=== PATIENT | female | born 1995 | race Caucasian/White ===

== ENCOUNTER → 2020-04-10 | Outpatient (CLI) | payer BC, SELFPAY ==
[2020-04-10 17:04] LABS: Chlamydia Trachomatis by PCR Negative (Negative); Neisserai gonorrhoeae by PCR Negative (Negative); Probe Check PASS; Sample Adequacy Control PASS; Specimen Processing Control PASS
== END | disposition home or self-care (01) ==
LOC: LABSPEC 15:02
PROVIDERS: Referring Provider Family Medicine; Visit Provider Family Medicine
DX: N39.0 Urinary tract infection, site not specified (principal)
CPT/HCPCS: 87077; 87086; 87088; 87186; 87491; 87591

== ENCOUNTER → 2020-07-04 14:16 | Outpatient (CLI) | payer BC, SELFPAY | PROVIDERS: PCP Family Medicine; Referring Provider Family Medicine; Visit Provider Family Medicine | DX: N39.0 Urinary tract infection, site not specified (principal) | CPT/HCPCS: 87077; 87086; 87088; 87186 ==

== ENCOUNTER → 2021-04-09 11:37 | Outpatient (CLI) | payer BC, SELFPAY ==
[2021-04-15 13:42] LABS: HPV APTIMA, High Risk Negative (Negative)
== END ==
PROVIDERS: PCP Family Medicine; Visit Provider Obstetrics & Gynecology
DX: Z12.4 Encounter for screening for malignant neoplasm of cervix (principal)
CPT/HCPCS: 87624; 88175; G0145

== ENCOUNTER → 2021-04-30 09:01 | Outpatient (CLI) | payer BC, SELFPAY ==
[2021-04-30 09:56] LABS: Absolute Lymphocyte Count 1.89 X10^3/uL (0.83-4.51); Absolute Neutrophil Count 1.9 X10^3/uL (2.0-7.7); Basophil# 0.04 X10^3/uL; Basophil% 0.9 % (0-1); Eosinophil# 0.23 X10^3/uL; Eosinophils% 5.1 % (0-5); Hematocrit 43.1 % (37-47); Hemoglobin 14.2 g/dL (12.0-15.0); Lymphocyte # 1.89 X10^3/ul (0.83-4.51); Lymphocyte % 41.6 % (19-41); Mean Corp Hgb Conc 32.9 g/dL (32-36); Mean Corpuscular Hgb 30.1 pg (27.0-32.0); Mean Corpuscular Volume 91.5 fL (81-99); Mean Platelet Vol. 10.2 fl (6.2-12.0); Monocyte# 0.45 X10^3/uL; Monocyte% 9.9 % (0-10); NRBC Flagged by Analyzer 0 % (0-5); Neutrophil # 1.91 X10^3/uL (2.7-7.7); Neutrophil % 42.1 % (47-70); Platelet Count 247 K/mm3 (150-450); RBC Distribution Width CV 12.2 % (11.6-14.6); RBC Distribution Width SD 41.1 fl (35.1-43.9); Red Blood Count 4.71 M/mm3 (4.2-5.4); White Blood Count 4.5 K/mm3 (4.4-11.0)
[2021-04-30 11:30] LABS: ALB/GLOB Ratio 1.3 RATIO (0.9-2.4); AST(SGOT) 12 U/L (15-37); Alanine Aminotransfer ALT/SGPT 17 U/L (13-56); Albumin, Serum 4.3 g/dL (3.2-5.0); Alkaline Phosphatase 65 U/L (45-117); Anion Gap 8 (5-15); BUN 10 mg/dL (7-18); BUN/Creat Ratio 13.6 RATIO (10-20); Calcium,Total 8.9 mg/dL (8.5-10.1); Chloride 102 mmol/L (98-107); Cholesterol 152 mg/dL (200); Creatinine, Serum 0.74 mg/dL (0.55-1.02); EST Glomerular Filtration Rate 101 mL/min (>60); Est Glom Filt Rate - Afr Amer 122 mL/min (>60); Globulin 3.2 g/dL (2.2-4.2); Glucose 84 mg/dL (74-106); High Density Lipoprotein 67 mg/dL; Potassium 3.9 mmol/L (3.5-5.1); Protein, Total 7.5 g/dL (6.4-8.2); Sodium Level 138 mmol/L (136-145); Thyroid Stim Hormone (TSH) 1.44 uIU/mL (0.358-3.74); Triglycerides 87 mg/dL; Very Low Density Lipoprotein 17 mg/dL (5-40)
== END ==
PROVIDERS: PCP Family Medicine; Referring Provider Family Medicine; Visit Provider Family Medicine
DX: F41.9 Anxiety disorder, unspecified (principal)
CPT/HCPCS: 36415; 80053; 80061; 84443; 85025

== ENCOUNTER → 2021-08-27 10:53 | Outpatient (CLI) | payer BC, SELFPAY ==
[2021-08-27 11:39] LABS: Hematocrit 43.4 % (37-47); Hemoglobin 14.2 g/dL (12.0-15.0); Mean Corp Hgb Conc 32.7 g/dL (32-36); Mean Corpuscular Hgb 30.1 pg (27.0-32.0); Mean Corpuscular Volume 92.1 fL (81-99); Mean Platelet Vol. 10.1 fl (6.2-12.0); Platelet Count 258 K/mm3 (150-450); RBC Distribution Width SD 40.9 fl (35.1-43.9); Red Blood Count 4.71 M/mm3 (4.2-5.4); White Blood Count 5.4 K/mm3 (4.4-11.0)
[2021-08-27 12:00] LABS: Estradiol 37.6 pg/mL; Follicle Stimulating Hormone 5.9 mIU/mL; Hemoglobin A1c 4.7 % (3.8-5.6); Luteinizing Hormone 16.1 mIU/mL; Prolactin 28.3 ng/mL; T4 Free Direct 0.91 ng/dL (0.76-1.46); Thyroid Stim Hormone (TSH) 1.26 uIU/mL (0.358-3.74)
[2021-08-29 11:09] LABS: Testosterone Free 2.4 pg/mL (0.0-4.2)
== END ==
PROVIDERS: PCP Family Medicine; Visit Provider Obstetrics & Gynecology
DX: N93.9 Abnormal uterine and vaginal bleeding, unspecified (principal)
CPT/HCPCS: 36415; 82670; 83001; 83002; 83036; 84146; 84402; 84439; 84443; 85027

== ENCOUNTER 2021-12-03 10:13 | Outpatient (CLI) | payer BC, SELFPAY ==
[2021-12-03 11:50] LABS: Progesterone Level 17.86 ng/mL (See Comment)
== END 2021-12-03 23:59 | disposition home or self-care (01) ==
LOC: WOBLAB 10:13
PROVIDERS: PCP Family Medicine; Visit Provider Obstetrics & Gynecology
DX: N97.0 Female infertility associated with anovulation (principal)
CPT/HCPCS: 36415; 84144

== ENCOUNTER 2022-01-08 11:41 | Outpatient (CLI) | payer BC, SELFPAY ==
[2022-01-08 13:15] LABS: Absolute Lymphocyte Count 1.73 X10^3/uL (0.83-4.51); Absolute Neutrophil Count 5.2 X10^3/uL (2.0-7.7); Basophil# 0.05 X10^3/uL; Basophil% 0.6 % (0-1); Eosinophil# 0.13 X10^3/uL; Eosinophils% 1.7 % (0-5); Hematocrit 37.8 % (37-47); Hemoglobin 13.4 g/dL (12.0-15.0); Lymphocyte # 1.73 X10^3/ul (0.83-4.51); Lymphocyte % 22.2 % (19-41); Mean Corp Hgb Conc 35.4 g/dL (32-36); Mean Corpuscular Hgb 31.4 pg (27.0-32.0); Mean Corpuscular Volume 88.5 fL (81-99); Mean Platelet Vol. 10.3 fl (6.2-12.0); Monocyte# 0.69 X10^3/uL; Monocyte% 8.9 % (0-10); NRBC Flagged by Analyzer 0 % (0-5); Neutrophil # 5.16 X10^3/uL (2.7-7.7); Neutrophil % 66.3 % (47-70); Platelet Count 251 K/mm3 (150-450); RBC Distribution Width CV 12.1 % (11.6-14.6); RBC Distribution Width SD 39.2 fl (35.1-43.9); Red Blood Count 4.27 M/mm3 (4.2-5.4); White Blood Count 7.8 K/mm3 (4.4-11.0)
[2022-01-08 14:23] LABS: HIV - WCH Non-Reactive (Nonreactive); Hepatitis B Surface Antigen Non-Reactive (Nonreactive); Hepatitis C Antibody Non-Reactive (Nonreactive); Rubella IgG Reactive (Nonreactive); Syphilis Antibodies Non-reactive
[2022-01-11 18:07] LABS: Chlamydia By Nucleic Acid AMP Negative (Negative)
[2022-01-11 21:18] LABS: Gonococcus By Nucleic Acid AMP Negative (Negative)
== END 2022-01-08 23:59 | disposition home or self-care (01) ==
LOC: WOBLAB 11:41
PROVIDERS: PCP Family Medicine; Visit Provider Obstetrics & Gynecology
DX: Z34.81 Encounter for supervision of other normal pregnancy, first trimester (principal); Z11.3 Encounter for screening for infections with a predominantly sexual mode of transmission
CPT/HCPCS: 36415; 85025; 86703; 86762; 86780; 86803; 87086; 87088; 87340; 87491; 87591

== ENCOUNTER → 2022-05-27 | Outpatient (CLI) | payer BC, SELFPAY ==
[2022-05-27 09:12] LABS: Absolute Lymphocyte Count 1.46 X10^3/uL (0.83-4.51); Basophil# 0.03 X10^3/uL; Basophil% 0.4 % (0-1); Eosinophil# 0.12 X10^3/uL; Eosinophils% 1.7 % (0-5); Hematocrit 38.9 % (37-47); Lymphocyte # 1.46 X10^3/ul (0.83-4.51); Lymphocyte % 20.7 % (19-41); Mean Corp Hgb Conc 33.4 g/dL (32-36); Mean Corpuscular Hgb 31.5 pg (27.0-32.0); Mean Corpuscular Volume 94.2 fL (81-99); Mean Platelet Vol. 10.3 fl (6.2-12.0); Monocyte# 0.41 X10^3/uL; Monocyte% 5.8 % (0-10); NRBC Flagged by Analyzer 0 % (0-5); Neutrophil # 4.96 X10^3/uL (2.7-7.7); Neutrophil % 70.1 % (47-70); Platelet Count 207 K/mm3 (150-450); RBC Distribution Width CV 12.8 % (11.6-14.6); RBC Distribution Width SD 43.8 fl (35.1-43.9); Red Blood Count 4.13 M/mm3 (4.2-5.4); White Blood Count 7.1 K/mm3 (4.4-11.0)
[2022-05-27 09:35] LABS: Glucose Challenge Gest 1H 50g 156 mg/dL (70-140)
== END | disposition home or self-care (01) ==
LOC: WOBLAB 08:40
PROVIDERS: PCP Family Medicine; Visit Provider Obstetrics & Gynecology
DX: Z34.82 Encounter for supervision of other normal pregnancy, second trimester (principal)
CPT/HCPCS: 36415; 82950; 85025

== ENCOUNTER → 2022-06-08 | Outpatient (CLI) | payer BC, SELFPAY ==
[2022-06-08 07:30] LABS: Glucose GTT-Gestation. Fasting 88 mg/dL (<105)
[2022-06-08 08:55] LABS: Glucose GTT-Gestational 1 Hr 206 mg/dL (<190)
[2022-06-08 10:15] LABS: Glucose GTT-Gestational 2 Hr 158 mg/dL (<165)
[2022-06-08 10:56] LABS: Glucose GTT-Gestational 3 Hr 123 L (<145)
== END | disposition home or self-care (01) ==
LOC: LAB 06:51
PROVIDERS: PCP Family Medicine; Referring Provider Obstetrics & Gynecology; Visit Provider Obstetrics & Gynecology
DX: O24.912 Unspecified diabetes mellitus in pregnancy, second trimester (principal); Z3A.00 Weeks of gestation of pregnancy not specified
CPT/HCPCS: 36415; 82951; 82952

== ENCOUNTER 2022-07-18 00:57 | Outpatient (CLI) | payer BC, SELFPAY ==
[2022-07-18 01:08] VITALS: BP 128/84; PULSE 102; TEMP 37.1
[2022-07-18 01:13] VITALS: BMI 23.8
[2022-07-18] MEDS: Lactated Ringers 1,000 ML 999 ML IV (02:00)
[2022-07-18 02:59] LABS: Color, Urine Yellow (Yellow); Glucose, Dipstick Normal (Normal); Ketone-Dipstick 50 mg/dl (Negative); Leukocyte Esterase-Dipstick Negative /ul (Negative); Nitrite-Dipstick Negative (Negative); Occult Blood-Urine Negative /ul (Negative); Protein-Dipstick Negative (Negative); Specific Gravity, Urine 1.005 (1.002-1.030); Urine Bilirubin Dipstick Negative (Negative); Urine Clarity Clear (Clear); Urine Urobilinogen Normal (Normal); Urine pH 6.5 (5.0 - 8.0)
--- NOTE | 2022-07-18 09:31 | OB.TRI.HP_ITS ---
HPI - General General Date of Admission: 07/18/22 HPI Narrative ARCADIO LLANOS, is a 26 F who presents abdominal cramping [facility] Medical History (Updated 07/18/22 @ 09:[address] Joey Vicente MD) Gestational diabetes Allergy/AdvReac Type Severity Reaction Status Date / Time No Known Allergies Allergy Verified 07/18/22 01:38 NST FHR Rate Baby A Baseline: 130 Variability:: Moderate Accelerations:: 15 x 15 Decelerations:: None NST Reactive:: Yes Uterine Activity:: quiet Assessment & Plan (1) : PLAN: Patient with abdominal cramping. Cervical exam with no signs of labor. UA negative. IV fluids given. Okay to discharge home
== END 2022-07-18 03:45 | disposition home or self-care (01) ==
LOC: WPOUT 00:59 → WP 00:59
PROVIDERS: PCP Family Medicine; Visit Provider Obstetrics & Gynecology
DX: O26.899 Other specified pregnancy related conditions, unspecified trimester (principal); R10.9 Unspecified abdominal pain
CPT/HCPCS: 96360; 59025; 59050; 81002; 87086; 87088; 99218; J7120; G0378

== ENCOUNTER 2022-07-21 04:53 | Inpatient (IN) | payer BC, SELFPAY ==
[2022-07-21] VITALS (43 sets, daily range): BP systolic 94–207; BP diastolic 52–150; PULSE 83–123; TEMP 36.9–37.4; O2SAT 93–99; BMI 23.9
[2022-07-21] MEDS: Lactated Ringers 1,000 ML 50 ML IV ×2 (05:05→17:16)
[2022-07-21] MEDS: 0.9% Saline Lock 10 ML Syringe IV (05:14)
[2022-07-21 05:19] LABS: ROM Internal Control Test YES-OK TO RESULT pt. (Internal QC)
[2022-07-21 05:20] LABS: ROM Patient Test POSITIVE (Negative)
[2022-07-21 05:22] LABS: Absolute Lymphocyte Count 1.75 X10^3/uL (0.83-4.51); Absolute Neutrophil Count 3.9 X10^3/uL (2.0-7.7); Basophil# 0.03 X10^3/uL; Basophil% 0.5 % (0-1); Eosinophil# 0.08 X10^3/uL; Eosinophils% 1.2 % (0-5); Hematocrit 37.7 % (37-47); Lymphocyte # 1.75 X10^3/ul (0.83-4.51); Mean Corp Hgb Conc 34.5 g/dL (32-36); Mean Corpuscular Hgb 31.9 pg (27.0-32.0); Mean Corpuscular Volume 92.4 fL (81-99); Mean Platelet Vol. 11.3 fl (6.2-12.0); Monocyte# 0.67 X10^3/uL; Monocyte% 10.3 % (0-10); NRBC Flagged by Analyzer 0 % (0-5); Neutrophil # 3.88 X10^3/uL (2.7-7.7); Neutrophil % 59.8 % (47-70); Platelet Count 179 K/mm3 (150-450); RBC Distribution Width SD 43.8 fl (35.1-43.9); Red Blood Count 4.08 M/mm3 (4.2-5.4); White Blood Count 6.5 K/mm3 (4.4-11.0)
[2022-07-21] MEDS: Oxytocin 30 units/NS 500 ml 30 UNITS/500 ML IV.SOLN IV (06:10)
[2022-07-21] MEDS: Betamethasone/Betamethasone 30 MG/5 ML Vial 12 MG IM (06:19)
[2022-07-21 07:01] LABS: Bedside Glucose 101 mg/dL (74-106)
[2022-07-21 07:01] LABS: Bedside Glucose 96 mg/dL (74-106)
--- NOTE | 2022-07-21 07:39 | HP.PCM.OB_ITS ---
History and Physical Date of Admission: 07/21/22 Chief complaint: Leakage of fluid History present illness: 27-year-old G1, P0 at 35 weeks and 5 days with BRIEN 08/20/2022 arrives with leakage of clear fluid. Denies headache, visual changes, chest pain, shortness of breath, nausea vomit, right upper quadrant pain. Patient states good movement. is complicated by GDM A1 Obstetric history: G1: Current Past medical history: Gestational diabetes Medications: None Past surgical history: None Allergies: No known drug allergies Family history: Denies history DVT or PE Social history: Denies smoking, alcohol use, drug use Review of systems: Besides above pertinent positives a full review of systems was performed and fou nd to be negative Physical exam: Vitals: Blood pressure 123/71 pulse 101 SPO2 97% on room air General: Normal-appearing no acute distress HEENT: Normocephalic/atraumatic no cervical lymphadenopathy Cardiac/respiratory: No use of accessory muscles, nonlabored breathing Abdomen: Soft, nontender, gravid Extremities: No peripheral edema normal peripheral pulses Psych: Normal affect normal demeanor nonpressured speech Labs: White blood cell count 6.5 hemoglobin 13.0 hematocrit 37.7% platelets 179. ROM positive. Blood type O+ antibody negative Assessment and plan: 27-year-old G1, P0 at 35 weeks and 5 days with P PROM. Educated patient on P PROM and deliveries. Nuclear Security Officer to see. GBS unknown, For GBS prophylaxis with penicillin. Celestone now, overall well controlled blood belcher gars okay for Celestone. Will start Pitocin as patient remote from delivery to augment labor. GDM A1 we will continue to monitor blood sugars and treat appropriately.
[2022-07-21 07:46] LABS: Group B Strep DNA By PCR POSITIVE (Negative); Probe Check PASS
[2022-07-21] MEDS: Penicillin G 3,000,000 Units 50 ML 100 UNITS IV ×2 (10:25→14:21)
[2022-07-21 11:00] LABS: Bedside Glucose 111 mg/dL (74-106)
[2022-07-21] MEDS: LACTATED RINGERS 500 ML 999 ML IV (11:13)
[2022-07-21 11:55] LABS: Bedside Glucose 110 mg/dL (74-106)
[2022-07-21] MEDS: fentaNYL-bupivacaine (epidural) 100 ML BAG EPIDURAL (12:07)
[2022-07-21] MEDS: Amnioinfusion- 0.9% NS 1,000 ML IV.SOLN. INTRA-UTER (13:35)
[2022-07-21 14:50] LABS: Bedside Glucose 105 mg/dL (74-106)
[2022-07-21 15:56] LABS: Bedside Glucose 97 mg/dL (74-106)
[2022-07-21] MEDS: Oxytocin 30 units/NS 500 ml 30 UNITS/500 ML IV.SOLN 334 UNITS IV (17:23)
--- NOTE | 2022-07-21 17:38 | EX.PCM.OBRPT ---
Vaginal Delivery Findings Description of Procedure: Normal spontaneous vaginal delivery of viable female , vertex FITZ. Head and shoulders delivered with ease. Cord cut and clamped. Baby handed off to patient. Placenta delivery cord traction and fundal massage. Second-degree midline perineal laceration noted and repaired in typical fashion. EBL 300 cc Apgars 8/9
[2022-07-21 18:06] LABS: Bedside Glucose 99 mg/dL (74-106)
[2022-07-21] MEDS: Acetaminophen 500 MG Tablet 1000 MG PO (21:40)
[2022-07-21] MEDS: Benzocaine/Lanolin/Aloe Vera 1 SPRAY EACH TOPICAL (22:46)
[2022-07-21] MEDS: Ibuprofen 600 MG Tablet PO (23:44)
[2022-07-22] VITALS (7 sets, daily range): BP systolic 89–107; BP diastolic 44–70; PULSE 63–88; RESP 15–16; TEMP 36.4–37.1; O2SAT 96–98
--- NOTE | 2022-07-22 03:00 | NURSING ---
This RN received report from Jocelyne ROCHA. This RN to assume care of patient and at this time.
[2022-07-22] MEDS: Acetaminophen 500 MG Tablet 1000 MG PO ×3 (05:05→17:34)
[2022-07-22 05:40] LABS: Bedside Glucose 113 mg/dL (74-106)
--- NOTE | 2022-07-22 06:18 | PCM.PN.OB ---
Subjective Subjective day 1. Sore. Lochia minimal. Working on breast-feeding. Objective Data Objective Data Vital Signs: Vital Signs Temp Pulse Resp BP Pulse Ox O2 Del Method 98.1 F 88 16 107/63 98 Room Air 07/22/22 04:35 07/22/22 04:35 07/22/22 04:35 07/22/22 04:35 07/22/22 04:09 07/22/22 04:35 Oxygen Delivery Method Room Air Weight: 61.235 kg Body Mass Index (BMI) 23.9 Intake & Output: Intake and Output for Last 24 Hours 07/20/22 07/21/22 07/22/22 23:59 23:59 23:59 Intake Total 1908.23 / 1908.23 Output Total 2850 / 2850 600 / 600 Balance -941.77 / -941.77 -600 / -600 Lab / Micro Data Result Diagrams: 07/21/22 05:05 Labs: Laboratory Results - last 24 hr 07/21/22 05:05: Blood Type O POSITIVE, Antibody Screen NEGATIVE 07/21/22 05:19: POC Glucose 96 07/21/22 05:20: Group B Strep DNA POSITIVE H, Specimen Comment Not Reportable 07/21/22 06:18: POC Glucose 101 07/21/22 10:31: POC Glucose 111 H 07/21/22 11:29: POC Glucose 110 H 07/21/22 14:28: POC Glucose 105 07/21/22 15:32: POC Glucose 97 07/21/22 17:46: POC Glucose 99 07/22/22 05:08: POC Glucose 113 H Micro: Microbiology 07/21/22 05:05 Nasal Secretion SARS-CoV-2 Antigen (Rapid) - Final Physical Exam Const alert, oriented x3 and no apparent distress HEENT normocephalic Head and Scalp: atraumatic Neck full ROM Resp normal respiratory effort Cardio regular rate GI normal to inspection, nondistended, normoactive bowel sounds GI Narrative: Uterus 2 cm below umbilicus Back/Spine normal ROM Extremity normal to inspection Extremity Narrative: Minimal pedal edema Neuro no focal motor deficits and no sensory deficits noted Psych mental status grossly normal and affect normal Assessment & Plan (1) Vaginal delivery: PLAN: day 1 status post . Breast-feeding, recommend consult on outpatient. Complicated by gestational diabetes A1. Glucose within normal limits this morning. We will repeat 2-hour GTT at 6 to 12 weeks . Likely discharge tomorrow. (2) Gestational diabetes mellitus:
[2022-07-22] MEDS: Ibuprofen 600 MG Tablet PO ×3 (08:07→22:23)
[2022-07-22] MEDS: Dibucaine 30 GM Tube 1 APPLIC TOPICAL (08:18)
--- NOTE | 2022-07-22 14:05 | NURSING ---
This nursing center tutor reviewed the documentation completed by Randee Prather, student nurse.
[2022-07-23 01:30] VITALS: BP 98/63; PULSE 84; RESP 14; TEMP 36.6; O2SAT 96
[2022-07-23] MEDS: Ibuprofen 600 MG Tablet PO ×2 (04:57→10:54)
--- NOTE | 2022-07-23 06:08 | PCM.DC.BLA ---
Discharge Summary Date of Admission: 07/21/22 Date of Discharge: 07/23/22 Summary: Patient arrived on 07/21/2022 with P PROM at 35 weeks. Subsequently delivered vaginally on 07/21/2022. GDM A1. Otherwise routine recovery. Mom discharged to hotel status on 07/23/2022 Meaningful Use Info Meaningful Use Diagnoses (Choose all that apply): None applicable Discharge Plan Admission Admit Date/Time: 07/21/22 04:53 Primary Reason for Your Visit: P PROM Attending Provider: Joey Vicente Primary Care Provider: Bob Macias Instructions Additional Instructions / Restrictions: Regular diet, okay to shower, no intercourse for 4 to 6 weeks. Weightbearing as tolerated. Call if fevers, chills, chest pain, shortness of breath. Follow-up 4 to 6 weeks Discharge Orders/Prescriptions Prescriptions: No Action 1 mg Tablet 1 tab PO DAILY Referrals / Follow Up: Bob Macias MD [Primary Care Provider] - Disposition Disposition (needs filled in before D/C Order can be placed): Home, Self Care
--- NOTE | 2022-07-23 06:09 | PCM.PN.OB ---
Subjective Subjective No overnight complaints Objective Data Objective Data Vital Signs: Vital Signs Temp Pulse Resp BP Pulse Ox O2 Del Method 97.9 F 84 14 98/63 96 Room Air 07/23/22 01:30 07/23/22 01:30 07/23/22 01:30 07/23/22 01:30 07/23/22 01:30 07/23/22 01:30 Oxygen Delivery Method Room Air Weight: 135 lb Body Mass Index (BMI) 23.9 Intake & Output: Intake and Output for Last 24 Hours 07/21/22 07/22/22 07/23/22 23:59 23:59 23:59 Intake Total 1908.23 / 1908.23 Output Total 2850 / 2850 600 / 600 Balance -941.77 / -941.77 -600 / -600 Lab / Micro Data Result Diagrams: 07/21/22 05:05 Micro: Microbiology 07/21/22 05:05 Nasal Secretion SARS-CoV-2 Antigen (Rapid) - Final Physical Exam Const alert, oriented x3, no apparent distress, average body habitus, healthy appearing and well nourished HEENT normocephalic and moist oral mucous membranes Eyes PERRL Resp normal respiratory effort, no retractions and no use of accessory muscles GI GI Narrative: Soft, nontender, uterus firm and below umbilicus Extremity normal to inspection, full ROM and no clubbing, cyanosis or edema Neuro moves all extremities and no focal motor deficits Psych mental status grossly normal, affect normal, speech normal and activity/motor behavior normal Assessment & Plan (1) Vaginal delivery: PLAN: day 2. Breast-feeding. GDM A1, will follow up with 2-hour GTT . [facility] status
[2022-07-23 08:15] VITALS: BP 110/69; PULSE 65; RESP 16; TEMP 36.6; O2SAT 95
--- NOTE | 2022-07-23 10:24 | NURSING ---
student charting reviewed
[2022-07-23 13:39] VITALS: BP 111/72; PULSE 86; RESP 16; TEMP 36.7; O2SAT 97
== END 2022-07-23 17:15 | disposition home or self-care (01) | DRG 807 ==
LOC: WPOUT 04:55 → WP 04:55
PROVIDERS: Student in an Organized Health Care Education/Training Program; Admitting Provider Obstetrics & Gynecology; PCP Family Medicine; Visit Provider Obstetrics & Gynecology
DX: O24.420 Gestational diabetes mellitus in childbirth, diet controlled (principal); Z37.0 Single live birth; O42.913 Preterm premature rupture of membranes, unspecified as to length of time between rupture and onset of labor, third trimester; Z3A.35 35 weeks gestation of pregnancy; O70.1 Second degree perineal laceration during delivery
CPT/HCPCS: 59025; 59050; 82962; 84112; 85025; 86850; 86900; 86901; 87426; 87653; 99218; J7030; J7120; A4216; G0378; J0702

== ENCOUNTER → 2024-01-18 | Outpatient (CLI) | payer BC, SELFPAY ==
--- NOTE | 2024-01-18 14:55 | RAD_ITS ---
STUDY: X-RAY - ACUTE ABDOMINAL SERIES REASON FOR EXAM: Female, 28 years old. Abdominal pain. TECHNIQUE: Single view of the chest. Supine, view(s) of the abdomen were obtained. COMPARISON: None. FINDINGS: The lungs are clear and expanded. Normal size heart. Normal mediastinum and vince. Normal visualized pulmonary arteries. Normal visualized aortic arch and descending thoracic aorta. Normal bowel gas pattern with air seen to the rectum. Moderate amount of feces in the colon. Normal visualized osseous structures. RAD/Acute Abdomen Inc Chest IMPRESSION: No acute abnormality of the chest, abdomen or pelvis. Electronically Signed: Fernando Morejon MD at 15:28 EDT ,
[2024-01-18 18:01] LABS: Absolute Lymphocyte Count 2.41 X10^3/uL (0.83-4.51); Absolute Neutrophil Count 3.2 X10^3/uL (2.0-7.7); Basophil# 0.05 X10^3/uL; Basophil% 0.8 % (0-1); Eosinophil# 0.07 X10^3/uL; Eosinophils% 1.1 % (0-5); Hematocrit 44.7 % (37-47); Hemoglobin 14.7 g/dL (12.0-15.0); Lymphocyte # 2.41 X10^3/ul (0.83-4.51); Lymphocyte % 38.4 % (19-41); Mean Corp Hgb Conc 32.9 g/dL (32-36); Mean Corpuscular Hgb 29.9 pg (27.0-32.0); Mean Corpuscular Volume 90.9 fL (81-99); Mean Platelet Vol. 10.4 fl (6.2-12.0); Monocyte# 0.53 X10^3/uL; Monocyte% 8.4 % (0-10); NRBC Flagged by Analyzer 0 % (0-5); Neutrophil # 3.21 X10^3/uL (2.7-7.7); Neutrophil % 51.1 % (47-70); Platelet Count 278 K/mm3 (150-450); RBC Distribution Width CV 12.1 % (11.6-14.6); RBC Distribution Width SD 40.6 fl (35.1-43.9); Red Blood Count 4.92 M/mm3 (4.2-5.4); White Blood Count 6.3 K/mm3 (4.4-11.0)
[2024-01-18 18:47] LABS: ALB/GLOB Ratio 1.3 RATIO (0.9-2.4); AST(SGOT) 11 U/L (15-37); Alanine Aminotransfer ALT/SGPT 14 U/L (13-56); Albumin, Serum 4.4 g/dL (3.2-5.0); Alkaline Phosphatase 52 U/L (45-117); Anion Gap 7 (5-15); BUN 11 mg/dL (7-18); BUN/Creat Ratio 14.2 RATIO (10-20); Calcium,Total 9.1 mg/dL (8.5-10.1); Chloride 106 mmol/L (98-107); Creatinine, Serum 0.78 mg/dL (0.55-1.02); EST Glomerular Filtration Rate 93 mL/min (>60); Est Glom Filt Rate - Afr Amer 113 mL/min (>60); Globulin 3.4 g/dL (2.2-4.2); Glucose 92 mg/dL (74-106); Lipase 40 U/L (13-75); Potassium 3.8 mmol/L (3.5-5.1); Protein, Total 7.8 g/dL (6.4-8.2); Sodium Level 140 mmol/L (136-145)
[2024-01-20 16:10] LABS: Deamidated Gliadin IgA 11 units (0-19); Deamidated Gliadin IgG 4 units (0-19); Endomysial Antibody IgA Negative (Negative); Immunoglobulin A 98 mg/dL (87-352); t-Transglutaminase IgA <2 U/mL (0-3)
== END | disposition home or self-care (01) ==
PROVIDERS: PCP Family Medicine; Referring Provider Family Medicine; Visit Provider Family Medicine
DX: R10.9 Unspecified abdominal pain (principal)
CPT/HCPCS: 36415; 74022; 80053; 82784; 83516; 83690; 85025; 86255

== ENCOUNTER → 2024-02-27 | Outpatient (CLI) | payer BC, SELFPAY | END | disposition home or self-care (01) | LOC: LABSPEC 17:07 | PROVIDERS: PCP Family Medicine; Referring Provider Obstetrics & Gynecology; Visit Provider Obstetrics & Gynecology | DX: Z12.4 Encounter for screening for malignant neoplasm of cervix (principal) | CPT/HCPCS: 88175; G0145 ==

== ENCOUNTER → 2024-03-01 | Outpatient (CLI) | payer BC, SELFPAY ==
[2024-03-01 16:08] LABS: Estradiol 184.7 pg/mL
[2024-03-05 12:08] LABS: Anti-Mullerian Hormone,Serum 6.51 ng/mL (.)
== END | disposition home or self-care (01) ==
LOC: LAB 14:25
PROVIDERS: PCP Family Medicine; Referring Provider Obstetrics & Gynecology; Visit Provider Obstetrics & Gynecology
DX: Z31.69 Encounter for other general counseling and advice on procreation (principal); N97.0 Female infertility associated with anovulation
CPT/HCPCS: 36415; 82627; 82670; 83516; 84443; 82626

== ENCOUNTER 2024-03-24 23:23 | Emergency (ER) | payer BC, SELFPAY ==
[2024-03-24 23:24] VITALS: BP 147/92; PULSE 92; RESP 18; TEMP 36.6; O2SAT 100; BMI 18.8
[2024-03-25 00:24] VITALS: BP 115/71; PULSE 87; RESP 16; O2SAT 98
--- NOTE | 2024-03-25 00:44 | EKG12_ITS ---
Test Reason : CP Blood Pressure : / mmHG Vent. Rate : 101 BPM Atrial Rate : 101 BPM P-R Int : 126 ms QRS Dur : 082 ms QT Int : 362 ms P-R-T Axes : 075 036 033 degrees QTc Int : 469 ms Sinus tachycardia Otherwise normal ECG Confirmed by SELINA VALENZUELA, MARJAN ([id number]), electronic news gathering editor TREMAYNE MARCANO ([id number]) on 03/26/2024 10:46:54 AM Referred By: Confirmed By:MARJAN MARKS MD
[2024-03-25 01:00] VITALS: BP 110/72; PULSE 80; RESP 19; O2SAT 98
[2024-03-25 01:03] LABS: Absolute Lymphocyte Count 3.78 X10^3/uL (0.83-4.51); Absolute Neutrophil Count 3.8 X10^3/uL (2.0-7.7); Basophil# 0.07 X10^3/uL; Basophil% 0.8 % (0-1); Eosinophil# 0.24 X10^3/uL; Eosinophils% 2.8 % (0-5); Hematocrit 41.9 % (37-47); Hemoglobin 14.2 g/dL (12.0-15.0); Lymphocyte # 3.78 X10^3/ul (0.83-4.51); Lymphocyte % 43.4 % (19-41); Mean Corp Hgb Conc 33.9 g/dL (32-36); Mean Corpuscular Hgb 30.3 pg (27.0-32.0); Mean Corpuscular Volume 89.5 fL (81-99); Mean Platelet Vol. 10.7 fl (6.2-12.0); Monocyte# 0.76 X10^3/uL; Monocyte% 8.7 % (0-10); NRBC Flagged by Analyzer 0 % (0-5); Neutrophil # 3.84 X10^3/uL (2.7-7.7); Neutrophil % 44.1 % (47-70); Platelet Count 269 K/mm3 (150-450); RBC Distribution Width SD 39.5 fl (35.1-43.9); Red Blood Count 4.68 M/mm3 (4.2-5.4); White Blood Count 8.7 K/mm3 (4.4-11.0)
--- NOTE | 2024-03-25 01:10 | RAD_ITS ---
EXAM: XR CHEST, 2 VIEWS CLINICAL INDICATION: chest pain TECHNIQUE: Frontal and lateral views of the chest. COMPARISON: 01/18/2024. FINDINGS: LUNGS AND PLEURAL SPACES: Unremarkable. No consolidation or edema. No pneumothorax. No effusion. HEART: Unremarkable. Cardiac silhouette not enlarged. MEDIASTINUM: Central airways and mediastinal contour are unremarkable. BONES/JOINTS: Unremarkable. No acute fracture. SOFT TISSUES: Unremarkable. RAD/Chest PA and Lateral IMPRESSION: No acute cardiopulmonary abnormality. Electronically Signed: Jass Dunn MD at 1:28 EDT ,
[2024-03-25 01:21] LABS: D-Dimer Quantitative (DVT/PE) < 0.27 FEU/ug/m (0.27-0.49)
[2024-03-25 01:23] LABS: AST(SGOT) 13 U/L (15-37); Alanine Aminotransfer ALT/SGPT 15 U/L (13-56); Albumin, Serum 4.2 g/dL (3.2-5.0); Alkaline Phosphatase 68 U/L (45-117); Anion Gap 5 (5-15); BUN 12 mg/dL (7-18); BUN/Creat Ratio 16.2 RATIO (10-20); Bilirubin, Direct 0.19 mg/dL (0.00-0.30); Chloride 108 mmol/L (98-107); Creatinine, Serum 0.74 mg/dL (0.55-1.02); EST Glomerular Filtration Rate 98 mL/min (>60); Est Glom Filt Rate - Afr Amer 119 mL/min (>60); Estimated Creatinine Clearance 85.14 ml/min; Globulin 3.1 g/dL (2.2-4.2); Glucose 111 mg/dL (74-106); Lipase 52 U/L (13-75); Potassium 3.1 mmol/L (3.5-5.1); Protein, Total 7.3 g/dL (6.4-8.2); Sodium Level 140 mmol/L (136-145); Troponin-I HS 4 pg/mL (3.0-54.0)
--- NOTE | 2024-03-25 01:41 | EX.ED.DYSGE1 ---
HPI History of Present Illness Chief Complaint: Chest Pain Informant: patient and spouse/S.O. Narrative Narrative: Patient is a 28-year-old female who states that she has been dealing with anxiety as well as intermittent nonspecific abdominal pain. She states this evening she had pain in her upper abdomen and felt like it radiated towards her chest. She denies any family history of cardiac disease at a young age. She denies any history of hypertension hyperlipidemia diabetes and states that she does not take any hormones or have any recent travel or previous DVT/PE. She states she was unsure if this was cardiac in nature or potential blood clot and therefore presented for evaluation. [facility] Medical History Gestational diabetes Infertility Home Medications ?Medication ?Instructions ?Recorded ?Last Taken ?Type [id number] 1 mg 1 tab PO DAILY Check with primary 07/21/22 Unknown History tablet doctor letrozole 2.5 mg tablet 2.5 mg PO DAILY #5 tabs 02/27/24 Unknown Rx Allergy/AdvReac Type Severity Reaction Status Date / Time No Known Allergies Allergy Verified 03/24/24 23:26 Family History (Updated 02/27/24 @ 14:49 by Colette Bernal) Mother Hypertension Father Hypertension Grandmother Colon cancer Aunt Breast cancer Uncle Multiple myeloma Social History (Updated 02/27/24 @ 14:49 by Colette Bernal) Smoking Status: Never smoker alcohol intake: never substance use type: does not use caffeine: No what type of physical activity do you participate in: walking frequency: 1-2 times per week do you feel safe at home: Yes additional social history: -[facility] ED Constitutional Constitutional ED: Denies chills or fever(s) Eyes Eyes: Denies change in vision ENT ENT ED: Denies sore throat Cardiovascular Cardiovascular: Reports chest pain; Denies palpitations or racing heartbeat Respiratory/Chest Respiratory/Chest: Denies cough or dyspnea Gastrointestinal Gastrointestinal: Reports abdominal pain; Denies diarrhea, nausea or vomiting Genitourinary Genitourinary ED: Denies dysuria Musculoskeletal Musculoskeletal: Denies myalgias Integumentary Denies rash Neurologic Neurologic: Denies headache(s) Psychiatric Psychiatric: Reports anxiety Hematologic/Lymphatic Hematologic/Lymphatic: Denies easy bleeding or easy bruising EXAM Physical Exam Const Vital Signs: 03/24/24 23:24 03/25/24 00:24 03/25/24 01:00 Temperature 97.8 F Temperature Source Temporal Pulse Rate 92 87 80 Respiratory Rate 18 16 19 H Blood Pressure 147/92 H 115/71 110/72 Blood Pressure Mean 110 85 84 Pulse Ox 100 98 98 Oxygen Delivery Method Room Air Room Air Room Air 03/25/24 01:52 Temperature 98.4 F Temperature Source Pulse Rate 73 Respiratory Rate 16 Blood Pressure 113/78 Blood Pressure Mean 89 Pulse Ox 98 Oxygen Delivery Method Positive well nourished and well developed General Appearance ED: well developed; Negative for pallor HEENT HEENT Narrative: Normocephalic atraumatic Eyes PERRL and EOMs intact bilaterally General Eye ED: Negative for scleral icterus Neck supple and no JVD Chest Wall palpation of chest normal Chest Narrative: No bony deformity or crepitance Resp normal respiratory effort and clear to auscultation bilaterally Cardio regular rhythm Rate: tachycardic and other Other Details: Tachycardic rate with regular rhythm. Radial and carotid pulses are equal and symmetric No murmurs rubs or gallops noted GI normal to inspection, nondistended, normoactive bowel sounds, non-tender, non-distended and no masses Auscultation: normoactive bowel sounds Palpation: soft Extremity normal to inspection Extremity Narrative: No asymmetric edema no pitting edema negative Homans' sign bilaterally Neuro oriented x3, CN's II-XII intact bilaterally and no sensory deficits noted Sensorium / Orientation: alert Motor Exam: strength 5/5 throughout Psych Psych Narrative: Patient has a nervous/anxious affect Skin no rashes or lesions noted, no wounds and skin turgor normal General Skin Exam: Negative for jaundice or pallor MDM MDM MDM Narrative Medical decision making narrative: Patient arrived to the ER mildly hypertensive and slightly tachycardic. However she appeared anxious and did report she has been struggling with this recently without any type of medication. Her complaint of abdominal pain with chest discomfort could be related to biliary colic versus acute cholecystitis versus pancreatitis versus acute coronary syndrome versus pneumonia versus pneumothorax versus cardiac dysrhythmia. Secondary to his basic blood work and a chest x-ray were obtained. Troponin was 4 and EKG was technically sinus tachycardia at a rate of 101 without ischemic changes going against acute coronary syndrome. Based on her tachycardia and report of abdominal/chest pain a D-dimer was obtained which was normal going against PE/DVT as well as dissection. Chest x-ray revealed no acute lung pathology such as pneumonia or pneumothorax. Patient reported spontaneous improvement of her symptoms. Therefore at this time as overall workup is negative and she has had spontaneous resolution of symptoms and stable vitals I do not feel there is need for further testing and she is otherwise safe for discharge History & Record Review Discussion w/independent historian: Patient and Significant other Lab Data Attestation: I reviewed the patient's lab results. Labs: Laboratory Results - last 24 hr 03/24/24 23:42 WBC 8.7 RBC 4.68 Hgb 14.2 Hct 41.9 MCV 89.5 MCH 30.3 MCHC 33.9 RDW Std Deviation 39.5 RDW Coeff of Rogelio 12.0 Plt Count 269 MPV 10.7 Immature Gran % (Auto) 0.200 Neut % (Auto) 44.1 L Lymph % (Auto) 43.4 H Gilliam % (Auto) 8.7 Eos % (Auto) 2.8 Baso % (Auto) 0.8 Absolute Neuts (auto) 3.8 Absolute Lymphs (auto) 3.78 Nucleated RBC % 0 D-Dimer Quant (PE/DVT) < 0.27 L Sodium 140 Potassium 3.1 L Chloride 108 H Carbon Dioxide 27.0 Anion Gap 5 BUN 12 Creatinine 0.74 Estim Creat Clear Calc 85.14 Est GFR (MDRD) Af Amer 119 Est GFR (MDRD) Non-Af 98 BUN/Creatinine Ratio 16.2 Glucose 111 H Calcium 9.0 Magnesium 2.0 Total Bilirubin 0.60 Direct Bilirubin 0.19 AST 13 L ALT 15 Alkaline Phosphatase 68 Troponin I High Sens 4 Total Protein 7.3 Albumin 4.2 Globulin 3.1 Lipase 52 Radiography Diagnostic Testing: Clinical Impression(s) from Imaging Studies Chest X-Ray 03/25/24 01:10 IMPRESSION: No acute cardiopulmonary abnormality. Electronically Signed: Jass Dunn MD at 1:28 EDT , Chest x-ray as interpreted by the emergency medicine physician reveals no acute infiltrate pneumothorax pleural effusion or widening of the mediastinum Discharge Plan Triage Chief Complaint: Chest Pain ED Provider: Nicola Hinds Dx/Rx/DC Orders Clinical Impression: Acute nonspecific chest pain with low risk of coronary artery disease, Hypokalemia, Anxiety Instructions: ED Chest Pain, Uncertain Cause Prescriptions: No Action letrozole 2.5 mg tablet 2.5 mg PO DAILY Qty: 5 2RF Patient Comments: not taking until pt sees specialist Rx Instructions: take on day 3 of cycle x 5 days 1 mg Tablet 1 tab PO DAILY Primary Care Provider: Bob Macias Referrals: Bob Macias MD [Primary Care Provider] - Print Language: Frisian Disposition Disposition: Home, Self Care Discharge Date/Time: 03/25/24 01:55
[2024-03-25 01:52] VITALS: BP 113/78; PULSE 73; RESP 16; TEMP 36.9; O2SAT 98
== END 2024-03-25 01:55 | disposition home or self-care (01) ==
PROVIDERS: Emergency Provider Emergency Medicine; PCP Family Medicine; Visit Provider Emergency Medicine
DX: R07.9 Chest pain, unspecified (principal); E87.6 Hypokalemia; R10.9 Unspecified abdominal pain; F41.9 Anxiety disorder, unspecified
CPT/HCPCS: 71046; 80048; 80076; 83690; 83735; 84484; 85025; 85379; 93005; 99283; A4216

== ENCOUNTER → 2024-03-28 | Outpatient (CLI) | payer BC, SELFPAY ==
[2024-03-28 16:30] LABS: Anion Gap 7 (5-15); BUN 12 mg/dL (7-18); BUN/Creat Ratio 18.4 RATIO (10-20); Calcium,Total 9.2 mg/dL (8.5-10.1); Chloride 103 mmol/L (98-107); Creatinine, Serum 0.65 mg/dL (0.55-1.02); EST Glomerular Filtration Rate 114 mL/min (>60); Est Glom Filt Rate - Afr Amer 138 mL/min (>60); Glucose 85 mg/dL (74-106); Sodium Level 138 mmol/L (136-145)
== END | disposition home or self-care (01) ==
LOC: MFPLAB 11:55
PROVIDERS: PCP Family Medicine; Visit Provider Family Medicine
DX: E87.6 Hypokalemia (principal)
CPT/HCPCS: 36415; 80048; 83735

== ENCOUNTER → 2024-06-27 | Outpatient (CLI) | payer BC, SELFPAY ==
[2024-06-30 07:12] LABS: Chlamydia By Nucleic Acid AMP Negative (Negative); Gonococcus By Nucleic Acid AMP Negative (Negative)
== END | disposition home or self-care (01) ==
LOC: LABSPEC 16:24
PROVIDERS: PCP Family Medicine; Referring Provider Obstetrics & Gynecology; Visit Provider Obstetrics & Gynecology
DX: O09.299 Supervision of pregnancy with other poor reproductive or obstetric history, unspecified trimester (principal); Z86.32 Personal history of gestational diabetes; Z3A.00 Weeks of gestation of pregnancy not specified
CPT/HCPCS: 87086; 87491; 87591

== ENCOUNTER → 2024-06-28 | Outpatient (CLI) | payer BC, SELFPAY ==
[2024-06-28 17:06] LABS: Absolute Lymphocyte Count 1.58 X10^3/uL (0.83-4.51); Absolute Neutrophil Count 3.7 X10^3/uL (2.0-7.7); Basophil# 0.03 X10^3/uL; Basophil% 0.5 % (0-1); Eosinophil# 0.09 X10^3/uL; Eosinophils% 1.5 % (0-5); Hematocrit 37.4 % (37-47); Hemoglobin 12.8 g/dL (12.0-15.0); Lymphocyte # 1.58 X10^3/ul (0.83-4.51); Lymphocyte % 26.8 % (19-41); Mean Corp Hgb Conc 34.2 g/dL (32-36); Mean Corpuscular Hgb 30.9 pg (27.0-32.0); Mean Corpuscular Volume 90.3 fL (81-99); Mean Platelet Vol. 9.9 fl (6.2-12.0); Monocyte% 8.5 % (0-10); NRBC Flagged by Analyzer 0 % (0-5); Neutrophil # 3.67 X10^3/uL (2.7-7.7); Neutrophil % 62.4 % (47-70); Platelet Count 223 K/mm3 (150-450); RBC Distribution Width CV 12.2 % (11.6-14.6); RBC Distribution Width SD 40.7 fl (35.1-43.9); Red Blood Count 4.14 M/mm3 (4.2-5.4); White Blood Count 5.9 K/mm3 (4.4-11.0)
[2024-06-28 18:07] LABS: Hemoglobin A1c 4.7 % (3.8-5.6)
[2024-06-29 16:15] LABS: HIV - WCH Non-Reactive (Nonreactive); Hepatitis B Surface Antigen Non-Reactive (Nonreactive); Hepatitis C Antibody Non-Reactive (Nonreactive); Rubella IgG Reactive (Nonreactive); Syphilis Antibodies Non-reactive
== END | disposition home or self-care (01) ==
LOC: LAB 16:28
PROVIDERS: PCP Family Medicine; Referring Provider Obstetrics & Gynecology; Visit Provider Obstetrics & Gynecology
DX: O09.90 Supervision of high risk pregnancy, unspecified, unspecified trimester (principal); Z86.32 Personal history of gestational diabetes; Z3A.00 Weeks of gestation of pregnancy not specified
CPT/HCPCS: 36415; 83036; 85025; 86703; 86762; 86780; 86803; 86850; 86900; 86901; 87340

== ENCOUNTER → 2024-10-12 | Outpatient (CLI) | payer BC, SELFPAY ==
[2024-10-12 10:05] LABS: Absolute Lymphocyte Count 1.59 X10^3/uL (0.83-4.51); Absolute Neutrophil Count 4.2 X10^3/uL (2.0-7.7); Basophil# 0.03 X10^3/uL; Basophil% 0.5 % (0-1); Eosinophil# 0.08 X10^3/uL; Eosinophils% 1.2 % (0-5); Hematocrit 37.7 % (37-47); Hemoglobin 12.6 g/dL (12.0-15.0); Lymphocyte # 1.59 X10^3/ul (0.83-4.51); Lymphocyte % 24.7 % (19-41); Mean Corp Hgb Conc 33.4 g/dL (32-36); Mean Corpuscular Volume 92.9 fL (81-99); Mean Platelet Vol. 10.4 fl (6.2-12.0); Monocyte# 0.45 X10^3/uL; NRBC Flagged by Analyzer 0 % (0-5); Neutrophil # 4.22 X10^3/uL (2.7-7.7); Neutrophil % 65.4 % (47-70); Platelet Count 196 K/mm3 (150-450); RBC Distribution Width CV 13.1 % (11.6-14.6); RBC Distribution Width SD 44.1 fl (35.1-43.9); Red Blood Count 4.06 M/mm3 (4.2-5.4); White Blood Count 6.5 K/mm3 (4.4-11.0)
[2024-10-12 10:32] LABS: Glucose Challenge Gest 1H 50g 199 mg/dL (70-140)
[2024-10-12 11:01] LABS: HIV - WCH Non-Reactive (Nonreactive); Syphilis Antibodies Non-reactive
== END | disposition home or self-care (01) ==
LOC: LAB 09:08
PROVIDERS: PCP Family Medicine; Referring Provider Registered Nurse; Visit Provider Registered Nurse
DX: O09.92 Supervision of high risk pregnancy, unspecified, second trimester (principal); Z13.1 Encounter for screening for diabetes mellitus; Z3A.00 Weeks of gestation of pregnancy not specified
CPT/HCPCS: 36415; 82950; 85025; 86703; 86780

== ENCOUNTER → 2024-10-25 | Outpatient (CLI) | payer BC, SELFPAY ==
--- NOTE | 2024-10-25 12:28 | US_ITS ---
HISTORY: check placenta. TECHNIQUE: Transabdominal pelvic ultrasound was performed. 31 images. COMPARISON: None. FINDINGS: INTRAUTERINE GESTATION(s): Single. PRESENTATION: Cephalic. PLACENTA: Posterior, grade one. No placenta previa with the placental tip 4.2 cm from the internal os. CERVIX: Closed. HEART MOTION: 130 bpm. AMNIOTIC FLUID: Maximum vertical pocket 4.7 cm. US/OB Limited (No Biometrics) IMPRESSION: Single live intrauterine . Posterior placenta. No placenta previa. Electronically Signed: Saniya Chandler MD at 10:45 EST ,
== END | disposition home or self-care (01) ==
PROVIDERS: PCP Family Medicine; Referring Provider Nurse Practitioner Women's Health; Visit Provider Nurse Practitioner Women's Health
DX: O44.42 Low lying placenta NOS or without hemorrhage, second trimester (principal); O09.92 Supervision of high risk pregnancy, unspecified, second trimester; Z3A.00 Weeks of gestation of pregnancy not specified
CPT/HCPCS: 76815

== ENCOUNTER → 2024-12-10 | Outpatient (CLI) | payer BC, SELFPAY ==
[2024-12-10 12:36] LABS: Protein, Urine (Random) < 6.0 mg/dL (<11.9)
== END | disposition home or self-care (01) ==
PROVIDERS: PCP Family Medicine; Referring Provider Obstetrics & Gynecology; Visit Provider Obstetrics & Gynecology
DX: R51.9 Headache, unspecified (principal)
CPT/HCPCS: 82570; 84156

== ENCOUNTER → 2024-12-14 | Outpatient (CLI) | payer BC, SELFPAY ==
--- NOTE | 2024-12-14 07:58 | US_ITS ---
PROCEDURE: OB LIMITED WITH BIOMETRICS REASON FOR EXAM: growth. COMPARISON: Comparison is made with prior study dated October 25, 2024. FINDINGS Number: 1 Position: Vertex Placental Position: Posterior and not low-lying. Placental Abnormalities: None. DIMENSIONS: Biparietal Diameter: 8.76 cm: 35 weeks and 3 days: 30.74 percentile/ Head Circumference: 32.4 cm: 36 weeks and 5 days: 26.5 percentile/ Abdominal Circumference: 32.03 cm: 36 weeks and 0 days: 47.7 percentile/ Femur Length: 6.84 cm: 35 weeks and 1 day: 16.6 percentile/ ESTIMATED WEIGHT: 2759 g plus/-414 g ESTIMATED WEIGHT PERCENTILE (24+ weeks): 35.2 ESTIMATED GESTATIONAL AGE: Baseline: 36 weeks and 3 days By Ultrasound: 35 weeks and 5 days ESTIMATED DATE OF DELIVERY: Baseline: January 09, 2020 By Ultrasound: January 13, 2025 BIOPHYSICAL ASSESSMENT: Amniotic Fluid Volume: Subjectively normal. Amniotic Fluid Index: 18.2 (8-24 cm normal range) Cardiac Motion: 130 beats per minute (average) Trunk and Limb Motion: Present. MATERNAL ANATOMY: Adnexa: Neither maternal ovary is successfully identified. US/OB Limited With Biometrics IMPRESSION: Single live intrauterine gestation with a mean gestational age of 35 weeks and 5 days. Reading Location: [id number]
== END | disposition home or self-care (01) ==
LOC: OPUS 07:57
PROVIDERS: PCP Family Medicine; Referring Provider Nurse Practitioner Women's Health; Visit Provider Nurse Practitioner Women's Health
DX: O24.419 Gestational diabetes mellitus in pregnancy, unspecified control (principal); O09.299 Supervision of pregnancy with other poor reproductive or obstetric history, unspecified trimester; Z3A.00 Weeks of gestation of pregnancy not specified
CPT/HCPCS: 76816

== ENCOUNTER → 2024-12-17 | Outpatient (CLI) | payer BC, SELFPAY | END | disposition home or self-care (01) | LOC: LABSPEC 10:02 | PROVIDERS: PCP Family Medicine; Referring Provider Advanced Practice Midwife; Visit Provider Advanced Practice Midwife | DX: O09.92 Supervision of high risk pregnancy, unspecified, second trimester (principal); Z3A.00 Weeks of gestation of pregnancy not specified | CPT/HCPCS: 87077; 87081; 87186 ==

== ENCOUNTER 2024-12-24 13:17 | Inpatient (IN) | payer BC, SELFPAY ==
[2024-12-24] VITALS (85 sets, daily range): BP systolic 103–150; BP diastolic 57–91; PULSE 21–101; RESP 14–18; TEMP 36.9–37.5; O2SAT 81–100; BMI 26.4
[2024-12-24 11:36] LABS: Hematocrit 40.2 % (37-47); Mean Corp Hgb Conc 34.8 g/dL (32-36); Mean Corpuscular Hgb 31.5 pg (27.0-32.0); Mean Corpuscular Volume 90.5 fL (81-99); Mean Platelet Vol. 12.5 fl (6.2-12.0); Platelet Count 148 K/mm3 (150-450); RBC Distribution Width CV 12.4 % (11.6-14.6); RBC Distribution Width SD 40.9 fl (35.1-43.9); Red Blood Count 4.44 M/mm3 (4.2-5.4); White Blood Count 8.2 K/mm3 (4.4-11.0)
[2024-12-24 12:20] LABS: Protein, Urine (Random) 6.5 mg/dL (0.0-12.0); Protein:Creat Ratio 373 mg/g CRE (0-200)
[2024-12-24 12:21] LABS: AST(SGOT) 19 U/L (<=31); Alanine Aminotransfer ALT/SGPT 8 U/L (<=34); Creatinine, Serum 0.93 mg/dL (0.70-1.20); EST Glomerular Filtration Rate 85 (>60); Estimated Creatinine Clearance 81.71 ml/min (50-250)
[2024-12-24] MEDS: Lactated Ringers 1,000 ML 50 ML IV (14:05)
[2024-12-24] MEDS: Penicillin G Pot 5,000,000 UNITS in 0.9% Normal Saline (100mL MB+) 100 ML 150 UNITS IV (14:21)
[2024-12-24] MEDS: Lactated Ringers 1,000 ML 999 ML IV (14:30)
[2024-12-24 14:48] LABS: Uric Acid 6.7 mg/dL (2.6-6.0)
--- NOTE | 2024-12-24 15:02 | HP.PCM.OB_ITS ---
HPI - General General Date of Admission: 12/24/24 Date of Service: 12/24/24 HPI Narrative ARCADIO LLANOS, is a 29 F 37.6 weeks who presents to unit for Preeclampsia work up. elevated BP x 2 and PC ratio. Likely in early labor- 3/80/-1 and contractions every 2-3 minutes. Maternal Data Information BRIEN Calculator Estimated Delivery Date Method Current WG Current Estimate 01/08/25 Ultrasound #1 37w 6d Other Estimates 01/15/25 LMP (Certain) 36w 6d Final BRIEN: 01/08/25 Final BRIEN Source: US >20 weeks Gestational age: 37.6 [facility] Medical History (Updated 12/24/24 @ 15:11 by Daisy Sage CNM) Family history of hearing loss at age younger than 7 years Anxiety Gestational diabetes Infertility Gestational diabetes Home Medications ?Medication ?Instructions ?Recorded ?Last Taken ?Type PNV 153-FA 400 mcg-om3 35 mg-dha 1 tab PO DAILY 12/23/24 History 25 mg-epa 5 mg-fish oil chew tablet sertraline 25 mg tablet 25 mg PO DAILY #90 tabs 10/0 11/0912/24/24 Rx OneTouch Delica Plus Lancet 33 #100 ea 10/12/24 Unknow n Rx gauge (lancets) blood sugar diagnostic (OneTouch #100 ea 10/12/24 Unkn own Rx Ultra Test strips) Allergy/AdvReac Type Severity Reaction Status Date / Time No Known Allergies Allergy Verified 12/24/24 11:11 Family History Mother Hypertension Father Hypertension Hyperlipidemia Grandmother Colon cancer Aunt Breast cancer Uncle Multiple myeloma Social History adopted: No household members: spouse and children number of children: 1 current occupational status: employed and unemployed 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 pets and animals: No history of recent travel: Yes (- May) out of state: Yes out of country: No sexually active: Yes Smoking Status: Never smoker alcohol intake: never substance use type: does not use well-balanced diet: daily or most days caffeine: No eating out: rarely or never during the past year weight has: remained stable what type of physical activity do you participate in: walking frequency: 1-2 times per week duration: 30-45 minutes/day [place]/yarsanism: Quaker seatbelt use: always do you feel safe at home: Yes additional social history: -Chris -[employer] History 2 Elective abortions Hx Para 1 Spontaneous abortions Hx # Term Pregnancies Ectopic pregnancies Hx # Pregnancies Multiple births # of living children 1 Past Pregnancies Del. Date Name GA/Weeks Outcome Route Bth Weight Gen Labor Lgth Anesthesia Del Locatn Provider FOB 07/21/22 Mateo 35 live - 5lbs 7oz Female ep idural [facility] Dr. Joey Vicente Chris Delivery Date: 07/21/22 Last Updated by: Colette Bernal Gestational diabetes, PROM Visit Details Expected Delivery Route/Plan Labor Preferences- CB/BF classes: no labor support person: Chris labor intervention preferences: [] pain management options preferred: epidural cut cord/dad catch: no : yes PP control planned: discussed discussed possible routes of delivery and associated risks: [] special requests: [] Plans Covid status: [] Flu vaccine: given Tdap vaccine: [] Rhogam: NA LARC form signed: yes Problem list reviewed and updated with the most current plan of care details and appropriate orders placed. Relevant counseling for the gestational age provided. Continue routine care and follow up unless otherwise noted in visit notes/problem list details OB Flowsheet Initial Weight: Not Recorded Date -?-?-?-?-?-?-?-?-?-?-?-?- EGA Weight BP Urine Prot -?-?-?-?-?-?-?-?-?-?-?-?- Glucose FHR FuHt Pres Dilation -?-?-?-?-?-?-?-?-?-?-?-?- Effaced St Visit Note 06/27/24 -?-?-?-?-?-?-?-?-?-?-?-?- 12w 1d 110 lb 4 oz 124/79 -?-?-?-?-?-?-?-?-?-?-?-?- 153 -?-?-?-?-?-?-?-?-?-?-?-?- JV- CRL off by a week. measures 5.3 cm. per [email or web address] should be 12 weeks 1 day. new brien given. h/o pprom and gdm. does not want to do 3 hr if fails. declines NIPT. 07/25/24 -?-?-?-?-?-?-?-?-?-?-?-?- 16w 1d 116 lb 4 oz 122/76 Nega tive -?-?-?-?-?-?-?-?-?-?-?-?- Negative 154 -?-?-?-?-?-?-?-?-?-?-?-?- JV- no lof, vagi nal bleeding, or cramping. has a sinus headache from time to time. getting mfm anatomy scan 08/20/24 -?-?-?-?-?-?-?-?-?-?-?-?- 19w 6d 120 lb 2 oz 116/64 Nega tive -?-?-?-?-?-?-?-?-?-?-?-?- Negative 151 -?-?-?-?-?-?-?-?-?-?-?-?- No VB, LOF. Feel ing movement. Reviewed low lying placenta 09/21/24 -?-?-?-?-?-?-?-?-?-?-?-?- 24w 3d 128 lb 6 oz 123/80 Nega tive -?-?-?-?-?-?-?-?-?-?-?-?- Negative 135 24 -?-?-?-?-?-?-?-?-?-?-?-?- LC- no vb/ctx/lo f. 28 week labs ordered. no concerns. 28 weeks us already sche dueled. 10/12/24 -?-?-?-?-?-?-?-?-?-?-?-?- 27w 3d 129 lb 4 oz 106/68 Nega tive -?-?-?-?-?-?-?-?-?-?-?-?- Negative 142 27 -?-?-?-?-?-?-?-?-?-?-?-?- MH-No VB, LOF. G ood FM. She is GDM/notified today. Will try for rpt US to check placenta at [facility] as MFM was costly. 10/24/24 -?-?-?-?-?-?-?-?-?-?-?-?- 29w 1d 132 lb 108/75 Negative -?-?-?-?-?-?-?-?-?-?-?-?- Negative 130 29 -?-?-?-?-?-?-?-?-?-?-?-?- SM- no vb lof go od fm no reuglar ctx still needs to meet with career technical education teacher but BS controlled 11/05/24 -?-?-?-?-?-?-?-?-?-?-?-?- 30w 6d 135 lb 111/73 Negative -?-?-?-?-?-?-?-?-?-?-?-?- Negative 130 31 -?-?-?-?-?-?-?-?-?-?-?-?- KW- no vb/lof/ct x. good fm. BS under control. US scheduled for 36 weeks. 11/21/24 -?-?-?-?-?-?-?-?-?-?-?-?- 33w 1d 140 lb 116/74 Negative -?-?-?-?-?-?-?-?-?-?-?-?- Negative 135 32 -?-?-?-?-?-?-?-?-?-?-?-?- SM- no vb lof go od fm no reuglar ctx 12/03/24 -?-?-?-?-?-?-?--?-?-?-?-?- 34w 6d 144 lb 6 oz 120/78 Nega tive -?-?-?-?-?-?-?-?-?-?-?-?- Negative 130 33 Cephalic -?-?-?-?-?-?-?-?-?-?-?-?- KW- no vb/lof/ct x. good fm. BS are very well controlled. US next week. 12/10/24 -?-?-?-?-?-?-?-?-?-?-?-?- 35w 6d 145 lb 4 oz 125/85 Nega tive -?-?-?-?-?-?-?-?-?-?-?-?- Negative 145 36 Cephalic -?-?-?-?-?-?-?-?-?-?-?-?- JV- had headache last week that kept her up at night .sending urine for prot:cr. no longer has headache and bp is normal. 12/17/24 -?-?-?-?-?-?-?-?-?-?-?-?- 36w 6d 145 lb 4 oz 116/79 -?-?-?-?-?-?-?-?-?-?-?-?- 145 36 Cephalic 2 -?-?-?-?-?-?-?-?-?-?-?-?- 70 -2 KW-no vb/l of/ctx. good fm. GBS today 12/24/24 -?-?-?-?-?-?-?-?-?-?-?-?- 37w 6d 150 lb 137/92 135/90 Negative -?-?-?-?-?-?-?-?-?-?-?-?- Negative 130 37 Cephalic -?-?-?-?-?-?-?-?-?-?-?-?- KW- no vb/lof/ct x. good fm. to wp to R/O pre e. no lan/bv/dizziness. having persistent swelling. NST FHR Rate Baby A Baseline: 130 Variability:: Moderate Accelerations:: 15 x 15 Decelerations:: None NST Reactive:: Yes FHR Category:: Category I Uterine Activity:: 2-5 minutes ROS Constitutional Constitutional: Denies change in weight, fatigue, fever(s), headache(s), poor appetite or weakness Eyes Eyes: Denies blurry vision, change in vision, floaters, seeing flashes or spots in vision ENT HEENT: Denies dizziness, headache(s), loss taste/smell or sore throat Cardiovascular Cardiovascular: Denies chest pain, dizziness, dyspnea, irregular heart rhythm, lightheadedness, palpitations or rapid heart rate Respiratory/Chest Respiratory/Chest: Denies change in mental status, chest tightness, cough, dyspnea or breast pain Gastrointestinal Gastrointestinal: Denies anorexia, chewing difficulty, constipation, diarrhea or weight changes Genitourinary Genitourinary: Denies difficulty urinating, dysuria, flank pain, genital pain, urinary frequency or urinary urgency Musculoskeletal Musculoskeletal: Denies back pain, difficulty walking, extremity pain, joint pain, muscle cramps or muscle weakness Integumentary Integumentary: Denies lesions or unusual bruising Neurologic Neurologic: Denies abnormal movements, abnormal speech, dizziness, numbness, seizure-like activity, syncope or weakness Psychiatric Psychiatric: Denies behavioral changes, change in appetite, confusion, depression, homicidal ideation, suicidal ideation or suicidal thoughts Endocrine Endocrinology: Denies excessive sweating, polydipsia or polyuria Hematologic/Lymphatic Hematologic/Lymphatic: Denies anemia Allergic/Immunologic Allergic/Immunologic: Denies itchy eyes, lip swelling, throat swelling, tongue swelling or wheezing Vital Signs Vital Signs Vital Signs: 12/24/24 11:05 12/24/24 11:05 12/24/24 11:05 Temperature Temperature Source Temporal Pulse Rate 71 Respiratory Rate Blood Pressure 141/88 H BP Systolic 141 BP Diastolic 88 Pulse Ox 12/24/24 11:05 12/24/24 11:05 12/24/24 11:07 Temperature 98.6 F Temperature Source Pulse Rate 82 Respiratory Rate 16 Blood Pressure BP Systolic BP Diastolic Pulse Ox 12/24/24 11:07 12/24/24 11:12 12/24/24 11:12 Temperature Temperature Source Pulse Rate 73 Respiratory Rate Blood Pressure BP Systolic BP Diastolic Pulse Ox 99 98 12/24/24 11:17 12/24/24 11:17 12/24/24 11:20 Temperature Temperature Source Pulse Rate 82 Respiratory Rate Blood Pressure 118/76 BP Systolic 118 BP Diastolic 76 Pulse Ox 98 12/24/24 11:20 12/24/24 11:22 12/24/24 11:22 Temperature Temperature Source Pulse Rate 82 82 Respiratory Rate Blood Pressure BP Systolic BP Diastolic Pulse Ox 97 12/24/24 11:27 12/24/24 11:27 12/24/24 11:32 Temperature Temperature Source Pulse Rate 88 82 Respiratory Rate Blood Pressure BP Systolic BP Diastolic Pulse Ox 97 12/24/24 11:32 12/24/24 11:36 12/24/24 11:36 Temperature Temperature Source Pulse Rate 75 Respiratory Rate Blood Pressure 119/71 BP Systolic 119 BP Diastolic 71 Pulse Ox 97 12/24/24 11:37 12/24/24 11:37 12/24/24 11:42 Temperature Temperature Source Pulse Rate 86 70 Respiratory Rate Blood Pressure BP Systolic BP Diastolic Pulse Ox 97 12/24/24 11:42 12/24/24 11:47 12/24/24 11:47 Temperature Temperature Source Pulse Rate 82 Respiratory Rate Blood Pressure BP Systolic BP Diastolic Pulse Ox 96 96 12/24/24 11:50 12/24/24 11:50 12/24/24 11:52 Temperature Temperature Source Pulse Rate 72 76 Respiratory Rate Blood Pressure 120/77 BP Systolic 120 BP Diastolic 77 Pulse Ox 12/24/24 11:52 12/24/24 11:57 12/24/24 11:57 Temperature Temperature Source Pulse Rate 70 Respiratory Rate Blood Pressure BP Systolic BP Diastolic Pulse Ox 96 96 12/24/24 12:02 12/24/24 12:02 12/24/24 12:06 Temperature Temperature Source Pulse Rate 75 Respiratory Rate Blood Pressure 109/68 BP Systolic 109 BP Diastolic 68 Pulse Ox 96 12/24/24 12:06 12/24/24 12:07 12/24/24 12:07 Temperature Temperature Source Pulse Rate 63 74 Respiratory Rate Blood Pressure BP Systolic BP Diastolic Pulse Ox 97 12/24/24 12:12 12/24/24 12:12 12/24/24 12:17 Temperature Temperature Source Pulse Rate 74 83 Respiratory Rate Blood Pressure BP Systolic BP Diastolic Pulse Ox 96 12/24/24 12:17 12/24/24 12:20 12/24/24 12:20 Temperature Temperature Source Pulse Rate 71 Respiratory Rate Blood Pressure 107/67 BP Systolic 107 BP Diastolic 67 Pulse Ox 97 12/24/24 12:22 12/24/24 12:22 12/24/24 12:27 Temperature Temperature Source Pulse Rate 82 72 Respiratory Rate Blood Pressure BP Systolic BP Diastolic Pulse Ox 96 12/24/24 12:27 12/24/24 12:32 12/24/24 12:32 Temperature Temperature Source Pulse Rate 86 Respiratory Rate Blood Pressure BP Systolic BP Diastolic Pulse Ox 97 96 12/24/24 12:36 12/24/24 12:36 12/24/24 12:37 Temperature Temperature Source Pulse Rate 83 63 Respiratory Rate Blood Pressure 103/63 BP Systolic 103 BP Diastolic 63 Pulse Ox 12/24/24 12:37 12/24/24 12:42 12/24/24 12:42 Temperature Temperature Source Pulse Rate 83 Respiratory Rate Blood Pressure BP Systolic BP Diastolic Pulse Ox 97 99 12/24/24 12:47 12/24/24 12:47 12/24/24 12:52 Temperature Temperature Source Pulse Rate 83 Respiratory Rate Blood Pressure 134/82 H BP Systolic 134 BP Diastolic 82 Pulse Ox 99 12/24/24 12:52 12/24/24 12:52 12/24/24 12:52 Temperature Temperature Source Pulse Rate 71 72 Respiratory Rate Blood Pressure BP Systolic BP Diastolic Pulse Ox 100 12/24/24 12:57 12/24/24 12:57 12/24/24 13:02 Temperature Temperature Source Pulse Rate 76 89 Respiratory Rate Blood Pressure BP Systolic BP Diastolic Pulse Ox 99 12/24/24 13:02 12/24/24 13:05 12/24/24 13:05 Temperature Temperature Source Pulse Rate 76 Respiratory Rate Blood Pressure 142/91 H BP Systolic 142 BP Diastolic 91 Pulse Ox 99 12/24/24 14:35 12/24/24 14:35 12/24/24 14:37 Temperature 99.0 F Temperature Source Temporal Pulse Rate 65 Respiratory Rate Blood Pressure BP Systolic BP Diastolic Pulse Ox 12/24/24 14:37 12/24/24 14:38 12/24/24 14:38 Temperature Temperature Source Pulse Rate 69 Respiratory Rate Blood Pressure 150/86 H BP Systolic 150 BP Diastolic 86 Pulse Ox 97 12/24/24 14:48 12/24/24 14:48 Temperature Temperature Source Pulse Rate 76 Respiratory Rate Blood Pressure 150/86 H BP Systolic 150 BP Diastolic 86 Pulse Ox Weight Weight: 149 lb 4 oz Body Mass Index (BMI) 26.4 Physical Exam Const alert, oriented x3 and no apparent distress General Appearance: cooperative Orientation / Consciousness: awake HEENT normocephalic Neck full ROM Lymph Lymphatic: no lymphadenopathy noted Chest inspection of chest normal Resp normal respiratory effort and normal air movement Effort and Inspection: able to speak in complete sentences and symmetric chest movement GI soft to palpation and non-tender Inspection: gravid Palpation: soft; Negative for tender external exam normal Manual OB Exam: dilated 3, effaced 80 and station -1 Back/Spine normal to inspection Extremity normal to inspection and full ROM Skin no rashes or lesions noted Psych mental status grossly normal Appearance: grossly normal Speech: normal speech Labs Labs Labs: Blood Type O POSITIVE Antibody Screen NEGATIVE Hct 40.2 % (37-47) Hgb 14.0 g/dL (12.0-15.0) Obstetrics Ultrasound Syphilis Total Ab Non-reactive Rubella IgG Antibody Reactive (Nonreactive) Hep Bs Antigen Non-Reactive (Nonreactive) Hepatitis C Antibody Non-Reactive (Nonreactive) Chlamydia DNA (DIAMOND) Negative (Negative) N.gonorrhoeae DNA (DIAMOND) Negative (Negative) HIV 1&2 Antibody Non-Reactive (Nonreactive) Glucose 1 Hr 50 gm 199 mg/dL (70-140) H Gest Glucose Tolerance MG/DL Group B Strep DNA POSITIVE (Negative) H Rhogam given: No Assessment & Plan (1) Active labor: PLAN: Patient presents IAL, plan expectant management for , pitocin/AROM PRN if needed. Pain management: [plans epidural]. GBS [positive plan IV PCN]. Management of any complications: [none] I have [facility] and made any clinically relevant updates. Dr Salter aware of admission, assessment and plan. Agrees with above (2) Positive GBS test: COMMENT: treat in labor (3) History of delivery, currently : COMMENT: pprom 35 weeks (4) Anxiety: COMMENT: zoloft stable (5) Supervision of high-risk : QUALIFIERS: Trimester: second trimester Qualified Code(s): O09.92 - Supervision of high risk , unspecified, second trimester COMMENT: PRR, , BRIEN 01/15/25, surprise TETE Galindo, Chris (6) : QUALIFIERS: Weeks of gestation: 37 weeks Qualified Code(s): Z3A.37 - 37 weeks gestation of COMMENT: declines genetic & carrier testing. nl anatomy (7) Infertility associated with anovulation: COMMENT: 1st used letrazole took 2.5 yrs to conceive, 2nd 1 yr to conceive (8) Gestational diabetes: QUALIFIERS: Gestational diabetes mellitus control: diet-controlled Trimester: second trimester Qualified Code(s): O24.410 - Gestational diabetes mellitus in , diet controlled COMMENT: QID testing, consult dietitian. Growth US 36w/WCH d/t cost Charges/Coding Multi Select Codes Urinary/Genital Urinary/Genital CPT Codes: No Charge
[2024-12-24 15:16] LABS: Syphilis Antibodies Nonreactive (Nonreactive)
[2024-12-24] MEDS: fentaNYL-bupivacaine (epidural) 100 ML BAG EPIDURAL (15:30)
[2024-12-24] MEDS: Lactated Ringers 1,000 ML 200 ML IV (15:41)
[2024-12-24 15:54] LABS: Bedside Glucose 62 mg/dL (74-106)
--- NOTE | 2024-12-24 16:06 | PN_ITS ---
Progress Note comfortable with epidural current tracing: FHT: 130 Moderate variability reactive no decelerations category I tracing [place]: 3-4 minutes Contractions Membranes:AROM for clear at 1600 SVE:3/80/-1 unchanged from last exam. plan to start pitocin A/P: Continue with position changes Titrate pitocin per protocol Epidural per anesthesia PCN for GBS prophylaxis Anticipate Dr Salter aware of above assessment and agrees with plan of care Assessment & Plan Assessment/Plan (1) Active labor: (2) Positive GBS test: (3) History of delivery, currently : (4) Anxiety: (5) Supervision of high-risk : QUALIFIERS: Trimester: second trimester Qualified Code(s): O09.92 - Supervision of high risk , unspecified, second trimester (6) : QUALIFIERS: Weeks of gestation: 37 weeks Qualified Code(s): Z3A.37 - 37 weeks gestation of (7) Infertility associated with anovulation: (8) Gestational diabetes: QUALIFIERS: Gestational diabetes mellitus control: diet-controlled Trimester: second trimester Qualified Code(s): O24.410 - Gestational diabetes mellitus in , diet controlled Multi Select Codes Urinary/Genital Urinary/Genital CPT Codes: No Charge
[2024-12-24] MEDS: Oxytocin 15 Units/NS 250ml 15 UNITS/250 ML IV.SOLN 2 UNITS IV (16:40)
[2024-12-24] MEDS: Penicillin G 3,000,000 Units 50 ML 100 UNITS IV (18:31)
[2024-12-24] MEDS: Oxytocin 10 UNITS/ML Vial IM (19:55)
--- NOTE | 2024-12-24 20:06 | EX.PCM.OBVAG ---
Assessment & Plan (1) Vaginal delivery: COMMENT: KW IAL 37.6 boy proteinuria (2) Active labor: (3) Positive GBS test: COMMENT: treat in labor (4) History of delivery, currently : COMMENT: pprom 35 weeks (5) Anxiety: COMMENT: zoloft stable (6) Supervision of high-risk : QUALIFIERS: Trimester: second trimester Qualified Code(s): O09.92 - Supervision of high risk , unspecified, second trimester COMMENT: PRR, , BRIEN 01/15/25, surprise TETE Galindo, Chris (7) : QUALIFIERS: Weeks of gestation: 37 weeks Qualified Code(s): Z3A.37 - 37 weeks gestation of COMMENT: declines genetic & carrier testing. nl anatomy (8) Infertility associated with anovulation: COMMENT: 1st used letrazole took 2.5 yrs to conceive, 2nd 1 yr to conceive (9) Gestational diabetes: QUALIFIERS: Gestational diabetes mellitus control: diet-controlled Trimester: second trimester Qualified Code(s): O24.410 - Gestational diabetes mellitus in , diet controlled COMMENT: QID testing, consult dietitian. Growth US 36w/WCH d/t cost Maternal Data Information BRIEN Calculator Estimated Delivery Date Method Current WG Current Estimate 01/08/25 Ultrasound #1 37w 6d Other Estimates 01/15/25 LMP (Certain) 36w 6d Final BRIEN: 01/08/25 Final BRIEN Source: US >20 weeks Gestational age: 37.6 Vaginal Delivery Maternal Presentation Maternal Presentation: Active Labor Maternal Presentation: Presented to unit for active labor at 37.6 weeks with proteinuria Vaginal Delivery Information Procedure Performed: Spontaneous Vaginal Delivery Surgeon/Practitioner: Daisy Sage Date of Procedure: 12/24/24 Pre-Procedure Diagnosis: see problem list Post-Procedure Diagnosis: same Type of anesthesia: Epidural Estimated Blood Loss: 400 Time of Delivery: 19:47 Findings Description of procedure: Progressed well to 10cm dilated and made steady progress with effective maternal pushing. Delivered the head in FITZ presentation. The head was delivered atraumatically and no nuchal cord was identified. The anterior and posterior shoulders delivered without complication followed by the rest of the infant and the was placed on the maternal abdomen. Delayed cord clamping was employed for approximately 3 minutes. Cord was clamped and cut and gentle traction was applied to the cord and the placenta delivered spontaneously. Immediately following, it was noted to be intact with a 3 vessel cord. Uterine bleeding brisk. IM and IV pitocin given and uterus firmed with massage then bleeding stable. The perineum and vagina were inspected and noted to have a second degree laceration which was repaired with 3-0 Vicryl in the usual fashion. EBL was 400cc. Patient and infant tolerated delivery well. Apgars 7/8. Dr Salter notified of vaginal delivery and orders reviewed. Physician agrees with current plan of care. Presentation: Vertex Amniotic Membrane Rupture Type: Artificial Amniotic Fluid Description: Clear Placental Delivery Description: Spontaneous Placenta Disposition: [facility] Specimen collected: No Cord Vessel Description: 3 Vessels Cord Entanglement: None A Gender: Male (1 minute): 7 (5 minute): 8 Delayed Cord Clamping: Yes Gold Nib Grinder mission commander: No Post Vaginal Deli Medications given after delivery: IV Pitocin and IM Pitocin Episiotomy Description: None Laceration: 2nd degree Complication Complications: No Multi Select Codes Urinary/Genital Urinary/Genital CPT Codes: 73389 Vaginal Delivery [facility]
[2024-12-24] MEDS: Oxytocin 15 Units/NS 250ml 15 UNITS/250 ML IV.SOLN 83 UNITS IV (20:07)
--- NOTE | 2024-12-24 20:11 | DCINST_ITS ---
Discharge Instructions Diet Discharge Diet: No restrictions DC O2, CPAP, BIPAP needs Home O2 Discharge instructions: No Dressing / Incision Discharge Activity: Return to Normal Activity May resume sexual activity in: 6-8 weeks Dressing / Incision Call your doctor if you observe: Fever of 101 or Higher, Coldness, Increased Pain, Numbness or Tingling, Change in Color, Inability to urinate, Inability to have a bowel movement, Using more than 1 pad per hour, Shortness of breath, Dizziness, Fainting spells, Swelling in the ankles, Chest pain, Increased p alpitations (irregular heartbeat), Calf discomfort and Uncontrolled pain Follow Up Care Please Follow Up With: Daisy Sage CNM When: Please call the office to schedule your follow up appointment in 6 weeks. If you had high blood pressure please call to schedule an appointment in 2 weeks. Test Results: Test results from this visit will be discussed in further detail at your follow- up appointment, if applicable. Discharge Plan Admission Admit Date/Time: 12/24/24 13:17 Attending Provider: Daisy Sage Primary Care Provider: Bob Macias Discharge Orders/Prescriptions Prescriptions: No Action PNV no.[id number] 400 mcg-35 mg- 25 mg-5 mg tablet,chewable 1 tab PO DAILY sertraline 25 mg tablet 25 mg PO DAILY Qty: 90 4RF (DME) lancets [OneTouch Delica Plus Lancet] 33 gauge misc See Rx Instructions .Route Qty: 100 6RF Rx Instructions: Test fasting and 2 hours after each meal (DME) OneTouch Ultra Test Strip See Rx Instructions .Route Qty: 100 6RF Rx Instructions: Test Fasting and 2 hour after each meal Referrals / Follow Up: Bob Macias MD [Primary Care Provider] -
[2024-12-24 22:07] LABS: Bedside Glucose 62 mg/dL (74-106)
[2024-12-24 22:32] LABS: Bedside Glucose 89 mg/dL (74-106)
[2024-12-25] MEDS: Ibuprofen 600 MG Tablet PO ×2 (03:34→10:39)
[2024-12-25 06:22] LABS: Absolute Lymphocyte Count 2.46 X10^3/uL (0.83-4.51); Absolute Neutrophil Count 5.4 X10^3/uL (2.0-7.7); Basophil# 0.04 X10^3/uL; Basophil% 0.4 % (0-1); Eosinophil# 0.09 X10^3/uL; Hematocrit 36.2 % (37-47); Hemoglobin 12.5 g/dL (12.0-15.0); Lymphocyte # 2.46 X10^3/ul (0.83-4.51); Lymphocyte % 27.4 % (19-41); Mean Corp Hgb Conc 34.5 g/dL (32-36); Mean Corpuscular Hgb 31.7 pg (27.0-32.0); Mean Corpuscular Volume 91.9 fL (81-99); Mean Platelet Vol. 12.6 fl (6.2-12.0); Monocyte# 0.91 X10^3/uL; Monocyte% 10.1 % (0-10); NRBC Flagged by Analyzer 0 % (0-5); Neutrophil # 5.43 X10^3/uL (2.7-7.7); Neutrophil % 60.7 % (47-70); Platelet Count 122 K/mm3 (150-450); RBC Distribution Width CV 12.3 % (11.6-14.6); RBC Distribution Width SD 41.1 fl (35.1-43.9); Red Blood Count 3.94 M/mm3 (4.2-5.4)
[2024-12-25 07:13] LABS: Bedside Glucose 93 mg/dL (74-106)
[2024-12-25 07:13] LABS: Bedside Glucose 62 mg/dL (74-106)
[2024-12-25 07:53] VITALS: BP 119/86; PULSE 65; RESP 96; TEMP 36.9
[2024-12-25] MEDS: Benzocaine/Lanolin/Aloe Vera 85 GM Spray 1 SPRAY TOPICAL (08:00)
[2024-12-25] MEDS: Sertraline 50 MG Tablet 25 MG PO (08:39)
[2024-12-25 11:46] VITALS: BP 121/78; PULSE 86; RESP 16; TEMP 36.6
--- NOTE | 2024-12-25 12:41 | PN.OBGYN_ITS ---
Subjective Subjective Patient doing well without complaints. Tolerating PO. Ambulating and voiding without difficulty. Feeding well. Denies chest pain, shortness of breath, calf pain/swelling, fevers, chills, lightheadedness. Baby has some low blood sugars and will need to stay another night. Objective Data Objective Data Vital Signs: Vital Signs Temp Pulse Resp BP Pulse Ox O2 Del Method 97.8 F 86 16 121/78 H 98 Room Air 12/25/24 11:46 12/25/24 11:46 12/25/24 11:46 12/25/24 11:46 12/24/24 23:45 12/25/24 11:46 Oxygen Delivery Method Room Air Weight: 149 lb 4 oz Body Mass Index (BMI) 26.4 Intake & Output: Intake and Output for Last 24 Hours 12/24/24 12/24/24 12/25/24 00:59 23:59 23:59 Intake Total 2571.67 / 2571.67 Output Total 1450 / 1450 1200 / 1200 Balance 1121.67 / 1121.67 -1200 / -1200 Lab / Micro Data 12/25/24 06:15 12/24/24 11:20 Labs: Laboratory Results - last 24 hr 12/24/24 11:20: Uric Acid 6.7 H 12/24/24 14:05: Syphilis Total Ab Nonreactive, Blood Type O POSITIVE, Antibody Screen NEGATIVE 12/24/24 15:26: POC Glucose 62 L 12/24/24 20:44: POC Glucose 62 L 12/24/24 22:09: POC Glucose 89 12/25/24 06:15: WBC 9.0, RBC 3.94 L, Hgb 12.5, Hct 36.2 L, MCV 91.9, MCH 31.7, MCHC 34.5, RDW Std Deviation 41.1, RDW Coeff of Rogelio 12.3, Plt Count 122 L, MPV 12.6 H, Immature Gran % (Auto) 0.400, Neut % (Auto) 60.7, Lymph % (Auto) 27.4, M ana luisa % (Auto) 10.1 H, Eos % (Auto) 1.0, Baso % (Auto) 0.4, Absolute Neuts (auto) 5.4, Absolute Lymphs (auto) 2.46, Nucleated RBC % 0 12/25/24 06:33: POC Glucose 62 L 12/25/24 06:54: POC Glucose 93 ROS Constitutional Constitutional: Denies chills, fatigue, fever(s), poor appetite or weakness Eyes Eyes: Denies blurry vision, change in vision, seeing flashes or spots in vision ENT HEENT: Denies dizziness, headache(s), loss taste/smell or sore throat Cardiovascular Cardiovascular: Denies chest pain, dizziness, dyspnea, irregular heart rhythm, palpitations or rapid heart rate Respiratory/Chest Respiratory/Chest: Denies chest tightness, cough, dyspnea or breast pain Gastrointestinal Gastrointestinal: Denies abdominal pain, constipation or vomiting Genitourinary Genitourinary: Denies dysuria or flank pain Musculoskeletal Musculoskeletal: Denies difficulty walking, joint pain, limited range of motion or numbness Neurologic Neurologic: Denies abnormal movements, abnormal speech, dizziness, numbness, seizure-like activity or syncope Psychiatric Psychiatric: Denies anxiety, behavioral changes, change in appetite, confusion, depression or suicidal thoughts Physical Exam Const alert, oriented x3 and no apparent distress General Appearance: cooperative and comfortable Resp normal respiratory effort Cardio regular rate GI normal to inspection, nondistended, normoactive bowel sounds GI Narrative: uterus is firm below umbilicus Palpation: soft Back/Spine no CVA tenderness and thoraco-lumbar ROM normal Extremity normal to inspection, no clubbing, cyanosis or edema, no calf tenderness and no pedal edema Psych mental status grossly normal, thought process normal, cooperative, affect normal, speech normal, activity/motor behavior normal, denies homicidal ideation and denies suicidal ideation Assessment & Plan (1) Vaginal delivery: COMMENT: KW IAL 37.6 boy proteinuria PLAN: s/p PPD # 1 1. routine post delivery care 2. breast feeding- support given 3. rh positive 4. rubella immune 5. plan for dc tomorrow.
[2024-12-25 15:46] VITALS: BP 137/94; PULSE 67; RESP 16; TEMP 36.7; O2SAT 97
[2024-12-25 18:02] VITALS: BP 144/96
[2024-12-25] MEDS: Labetalol 100 MG Tablet PO (18:43)
[2024-12-25 21:00] VITALS: BP 123/84; PULSE 79; RESP 16; TEMP 36.6; O2SAT 97
[2024-12-26] MEDS: Ibuprofen 600 MG Tablet PO ×2 (00:26→06:20)
[2024-12-26] MEDS: Acetaminophen 500 MG Tablet 1000 MG PO ×2 (00:27→06:21)
[2024-12-26 00:30] VITALS: BP 134/86; PULSE 60; RESP 16; TEMP 36.5; O2SAT 97
[2024-12-26 04:15] VITALS: BP 133/87; PULSE 63; RESP 16; TEMP 36.8; O2SAT 98
--- NOTE | 2024-12-26 07:56 | PCM.PN.OB ---
Subjective Subjective Patient doing well without complaints. Tolerating PO. Ambulating and voiding without difficulty. Feeding well. Denies chest pain, shortness of breath, calf pain/swelling, fevers, chills, lightheadedness. Baby still in SCN, IV, eating issues, low sugars. Objective Data Objective Data Vital Signs: Vital Signs Temp Pulse Resp BP Pulse Ox O2 Del Method 98.2 F 63 16 133/87 H 98 Room Air 12/26/24 04:15 12/26/24 04:15 12/26/24 04:15 12/26/24 04:15 12/26/24 04:15 12/26/24 04:15 Oxygen Delivery Method Room Air Weight: 149 lb 4 oz Body Mass Index (BMI) 26.4 Intake & Output: Intake and Output for Last 24 Hours 12/24/24 12/25/24 12/26/24 23:59 23:59 23:59 Intake Total 2571.67 / 2571.67 Output Total 1450 / 1450 1200 / 1200 Balance 1121.67 / 1121.67 -1200 / -1200 Lab / Micro Data 12/25/24 06:15 12/24/24 11:20 Physical Exam Const alert and oriented x3 HEENT normocephalic Eyes PERRL Neck full ROM Resp normal respiratory effort GI soft to palpation GI Narrative: FF below U Assessment & Plan (1) Vaginal delivery: COMMENT: KW IAL 37.6 boy proteinuria (2) Gestational diabetes: QUALIFIERS: Gestational diabetes mellitus control: diet-controlled Trimester: unspecified trimester Qualified Code(s): O24.410 - Gestational diabetes mellitus in , diet controlled COMMENT: stable pp (3) HTN (hypertension): QUALIFIERS: Hypertension type: unspecified Qualified Code(s): I10 - Essential (primary) hypertension COMMENT: labetalol start PLAN: Plan s/p PPD # 2 1. routine post delivery care 2. breast feeding- support given 3. rh positive 4. rubella immune 5. glucose stable 6. will send Rx for labetalol for home. BP check 1 week in office 7. hotel status today
[2024-12-26] MEDS: Sertraline 50 MG Tablet 25 MG PO (08:49)
[2024-12-26 08:52] VITALS: BP 144/95; PULSE 64; RESP 14; TEMP 36.9; O2SAT 98
[2024-12-26] MEDS: Senna/Docusate Sodium 1 Tablet PO (10:08)
[2024-12-26] MEDS: Labetalol 100 MG Tablet PO (10:09)
[2024-12-26 13:00] VITALS: BP 112/81; PULSE 68; RESP 16; O2SAT 99
[2024-12-26 14:05] VITALS: RESP 16
--- NOTE | 2024-12-27 11:39 | CASEMGMT ---
Social Work Assessment Labor and Delivery Unit Patient Address: [address] [place] [address]. [place] [address] Phone number: [phone] Date of Referral: 12/24/24 Time of Referral:? 2302 Referred By: Daisy Sage Date of Intervention: ??12/27/24 Time of Intervention:? 0 Reason for Referral:? mental health Sw completed chart review and acknowledges social work consult due to maternal mental health. Sw presented to bedside and introduced self to mother of baby (MOB- Kelsi) and father of baby (FOFarrah- Chris). Sw explained reason for sw involvement and completed psychosocial assessment. History obtained from: medical records, MOB and FOB Household composition: Currently residing in the family home is OUMAR FONSECA, their two year old daughter- Mateo and now when ready for discharge. Parents deny any problems or concerns with their housing, reporting it is safe and secure. Patient's parent/guardian status:? ?MOB states that she and OUMAR were introduced to each other by family members, they have been together for almost 6 years (in January). [place] baby is second baby for parents together. No concerns of domestic violence or intimate partner violence reported. Medical History: ?MARIAN is 29 year old female who is 2, para 1- now 2 following labor and delivery of . MARIAN received routine care during with Alfred. MARIAN presented to hospital and delivered baby via vaginal delivery on 12/24/24 at 37 weeks gestation. Baby boy, named Virgilio, was born weighing 5lb 16oz with apgars of 7 and 8 at one and five minutes of life, respectfully. Baby was transferred to [facility] due to respiratory distress and hypoglycemia. Baby has made medical progress towards identified goals and is preparing to be ready for discharge. Baby will be followed by Dr. Webb for pediatrics. Educational Status:?FOFarrah obtained his Bachelor's degree and MARIAN has a certificate. Parents deny difficulty with reading, learning or comprehension. Financial Status: Both parents are employed. 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 Supplies: All necessary baby supplies obtained, including: car seat, safe sleep space, clothes, diapers and wipes. Childcare/Caregiver(s):? MARIAN states that she will be the primary caregiver to baby. When both parents are working paternal grandma will provide childcare for their children. Transportation:?? Both parents have their drivers license and reliable means of transportation, no barriers at this time. Programs/Agencies Involved: ???Parents are not connected to any community agencies that assist them financially as they are over income. Children Services/Legal Issues:???No history of children services involvement, no issues or concerns warranting referral to be made at this time. Behavioral Health Issues: ??Mental Health History:?OUMAR denies metnal health history. MOB states that she has been diagnosed with anxiety. MOB states that her symptoms are normally manageable, however she did get put on medication last spring (Zoloft) to help manage her anxiety. MOB states that she gets worked up or anxious about health things related. MOB states last spring she started having a lot of stomach problems, which would cause her to be anxious- but she believes because she was anxious it was increasing her stomach problems. MOB states that since starting the zoloft she has had no problems. ?? Substance Use History:?Parents deny substance use prior to and during . ? Family History:?Parents deny family history of substance use and significant mental health diagnoses. ? Drug Screens: No drug screens observed to have been completed. Family/Social Stressors:? Parents deny any problems, issues or concerns. Parents state that they have managed having baby admitted to [facility]. MOB states that they went home yesterday after she was officially discharged and that helped them mentally. Support Systems: MARIAN identifies that paternal grandma and her sisters are her biggest supports. Depression/Shaken Baby/Safe Sleeping: [place] educated parents on signs and symptoms of baby blues and depression and anxiety. MOB states that she is familiar with the terms and knowledgeable regarding what symptoms are red flags. MOB states that OUMAR would be able to recognize if she were struggling and would know how to help and support her. MOB denies experiencing any symptoms during her period after her daughter was born. MOB states that currently she feels really good, is happy and feels a tony with baby. MOB states that if she were to struggle she feels comfortable talking to her supports or reaching out to her OBGYN. MOB encouraged to continue to take medication as prescribed and to also consider linkage to a mental health services provider if warranted. Sw educated parents on shaken baby prevention and ABCs of safe sleep, parents express understanding. ASSESSMENT:? MOB now discharged from labor and delivery but still present at hospital while baby requires admission to Special Care Nursery. MBO and FOB talkative and engaging throughout completion of assessment. MOB and FOB talk openly about mental health and have foundation of understanding regarding what to be mindful of during this time. MOB appears to be in pleasant mood, made and maintained eye contact. Both parents answered questions asked and conversation flowed naturally. Parents have natural supports in place and have obtained all necessary baby supplies. PLAN:?? No other services requested or indicated. MOB and baby to be discharged when medically ready. Parents were provided literature regarding: signs and symptoms of baby blues and mood and anxiety disorders, Help Me Grow, shaken baby prevention, ABCs of safe sleep and a list of county resources that are available for them should any needs present themselves. Jl Ochoa, HEAT [employer] INSULATOR, MANAGER LABOR RELATIONS
== END 2024-12-26 14:05 | disposition home or self-care (01) | DRG 807 ==
LOC: WPOUT 13:18 → WP 13:19
PROVIDERS: Admitting Provider Advanced Practice Midwife; PCP Family Medicine; Referring Provider Advanced Practice Midwife; Visit Provider Advanced Practice Midwife
DX: O12.14 Gestational proteinuria, complicating childbirth (principal); Z37.0 Single live birth; O72.1 Other immediate postpartum hemorrhage; O24.420 Gestational diabetes mellitus in childbirth, diet controlled; O16.5 Unspecified maternal hypertension, complicating the puerperium; F41.9 Anxiety disorder, unspecified; Z3A.37 37 weeks gestation of pregnancy; O99.824 Streptococcus B carrier state complicating childbirth; O99.344 Other mental disorders complicating childbirth; Z87.51 Personal history of pre-term labor; O70.1 Second degree perineal laceration during delivery
CPT/HCPCS: 59025; 59050; 82565; 82570; 82962; 84156; 84450; 84460; 84550; 85025; 85027; 86780; 86850; 86900; 86901; 99221; G0378